=== PATIENT | male | born 1990 | race Caucasian/White ===

== ENCOUNTER 2019-01-05 14:21 | Emergency (ER) | payer MEDICAID ==
[~2019-01-05] VITALS: Ht 177.8 cm; Wt 63.6 kg
[2019-01-05] MEDS: SODIUM CHLORIDE 0.9% 1,000 ML IV ONE (16:26)
[2019-01-05] MEDS: KETOROLAC TROMETHAMINE 30 MG/ML VIAL IVP ONE (16:29)
[2019-01-05] MEDS: METOCLOPRAMIDE HCL 5 MG/ML 2 ML VIAL IVP ONE (16:29)
[2019-01-05] MEDS: DiphenhydrAMINE HCL 50 MG/ML VIAL IVP ONE (16:30)
[2019-01-05] MEDS: SUMAtriptan SUCCINATE 6 MG/0.5 ML VIAL SQ ONE (17:51)
[2019-01-05] MEDS: ACETAMINOPHEN 1000 MG/ISO-OSM 100 ML IV ONE (17:51)
[2019-01-05 18:30] VITALS: BP 129/80
== END 2019-01-05 19:00 | disposition home or self-care (01) ==
LOC: EMS 14:21
DX: G43.909 Migraine, unspecified, not intractable, without status migrainosus (principal); Z88.2 Allergy status to sulfonamides
CPT/HCPCS: 70450; 96365; 96372; 96375; 99284; J0131; J1200; J1885; J2765; J3030; J7030

== ENCOUNTER 2019-03-17 23:50 | Emergency (ER) | payer MEDICAID | END 2019-03-18 01:00 | disposition left against medical advice (07) | LOC: EMS 23:52 | DX: R45.851 Suicidal ideations (principal); Z53.21 Procedure and treatment not carried out due to patient leaving prior to being seen by health care provider ==

== ENCOUNTER 2020-07-17 12:58 | Emergency (ER) | payer MEDICAID ==
[~2020-07-17] VITALS: Ht 177.8 cm; Wt 68.2 kg
[2020-07-17 15:11] VITALS: BP 116/73
== END 2020-07-17 15:45 | disposition home or self-care (01) ==
LOC: EMS 13:11
DX: M23.92 Unspecified internal derangement of left knee (principal); F17.210 Nicotine dependence, cigarettes, uncomplicated; Z88.2 Allergy status to sulfonamides
CPT/HCPCS: 29505